=== PATIENT | male | born 1955 | race Caucasian/White ===

== ENCOUNTER → 2019-08-17 | Outpatient (CLI) | payer OTHER ==
--- NOTE | 2019-08-17 11:45 | REP ---
Four views left wrist and four views left hand: 08/17/2019. Indication: New left hand and wrist pain following fall. Comparison: None. Findings: There is no evidence of acute fracture, subluxation or dislocation. Osteoarthritic sequelae are noted most pronounced at the first carpal metacarpal joint. No erosive lesions of the visualized bones are noted. Impression: No acute fracture. Electronically Signed by Bhavesh Schultz DO 08/17/2019 11:37 A
== END ==
LOC: M RAD 10:53
PROVIDERS: ATTEND Physician Assistant Medical
DX: M25.532 Pain in left wrist (principal)

== ENCOUNTER 2019-12-07 18:41 | Emergency (ER) | payer OTHER ==
[2019-12-07] MEDS ORDERED: ALBU8.5H PO (18:56)
[2019-12-07] MEDS ORDERED: ALL10TAB29 PO (18:56)
[2019-12-07 19:12] LABS: BASO # 0.1 10^3/uL (0.0-0.2); BASO % 0.4 % (0.0-1.0); EOS # 1.1 10^3/uL (0.0-0.5); HEMOGLOBIN 17.7 g/dl (13.5-17.5); LYMPH # 1.2 10^3/uL (1.5-5.0); LYMPH % 5.6 % (24.0-44.0); MEAN CORPUSCULAR HEMOGLOBIN 28.6 pg (27.0-33.0); MEAN CORPUSCULAR HGB CONC 32.2 g/dl (32.0-36.5); MONO # 1.6 10^3/uL (0.0-0.8); MONO % 7.6 % (0.0-5.0); NEUTROPHILS # 17.3 10^3/uL (1.5-8.5); NEUTROPHILS % 80.8 % (36.0-66.0); PLATELET COUNT, AUTOMATED 370 10^3/uL (150-450); RED BLOOD COUNT 6.18 10^6/uL (4.30-6.10); WHITE BLOOD COUNT 21.4 10^3/uL (4.0-10.0)
[2019-12-07 19:39] LABS: ALBUMIN 4.6 GM/DL (3.2-5.2); ALT/SGPT 40 U/L (12-78); BILIRUBIN,DIRECT 0.2 MG/DL (0.0-0.2); BLOOD UREA NITROGEN 18 MG/DL (7-18); CALCIUM LEVEL 10.3 MG/DL (8.8-10.2); CARBON DIOXIDE LEVEL 22 MEQ/L (21-32); CHLORIDE LEVEL 102 MEQ/L (98-107); CK-MB VALUE MASS 1.3 NG/ML (<3.6); CPK CREATINE PHOSPHOKINASE 163 U/L (39-308); CREATININE FOR GFR 1.78 MG/DL (0.70-1.30); GLOMERULAR FILTRATION RATE 41.3 (>49); GLUCOSE, FASTING 159 MG/DL (70-100); LIPASE 145 U/L (73-393); POTASSIUM SERUM 4.5 MEQ/L (3.5-5.1); SODIUM LEVEL 138 MEQ/L (136-145); TOTAL PROTEIN 9.4 GM/DL (6.4-8.2); TROPONIN I < 0.02 NG/ML (< 0.10)
--- NOTE | 2019-12-07 19:58 | REP ---
Clinical: Chest pain . Comparison: 10/09/2014 . Findings: The mediastinum and cardiac silhouette are stable and within normal limits for portable technique. The lung perez demonstrate chronic interstitial changes and stable granuloma without acute consolidation, effusion, or pneumothorax. Skeletal structures are intact. Impression: No acute cardiopulmonary process appreciated. Electronically Signed by Poli Wood MD 12/07/2019 07:49 P
[2019-12-07] MEDS ORDERED: NS 1,000 ML IV ONE (20:30)
[2019-12-07] MEDS ORDERED: ONDANSETRON 4MG/2ML VIAL (J2405) IV ONE (20:30)
--- NOTE | 2019-12-07 21:26 | REPVR ---
PROCEDURE INFORMATION: Exam: CT Abdomen And Pelvis Without Contrast Exam date and time: 12/07/2019 8:29 PM Age: 64 years old Clinical indication: Vomiting; Additional info: Diarrhea/vomiting/pain TECHNIQUE: Imaging protocol: Computed tomography of the abdomen and pelvis without contrast. Radiation optimization: All CT scans at this facility use at least one of these dose optimization techniques: automated exposure control; mA and/or kV adjustment per patient size (includes targeted exams where dose is matched to clinical indication); or iterative reconstruction. COMPARISON: CT ABD PELVIS WITH CONTRAST 10/09/2014 12:56 PM FINDINGS: Lungs: There is subsegmental atelectasis base and diffuse bronchial wall thickening. There are no pleural effusions. There is a calcified lymph node in the left hilum and calcified granuloma in the left lower lobe unchanged in comparison to 10/09/2014 CT likely due to old granulomatous disease. Liver: There are no focal liver lesions present. Gallbladder and bile ducts: The gallbladder is normal. Pancreas: The pancreas is normal. Spleen: There is a probable granuloma in the spleen. Adrenals: The adrenal glands are normal. Kidneys and ureters: The kidneys are normal. Stomach and bowel: The colon is fluid filled. There is no small bowel obstruction. There is minimal pericolic Torie inflammation surrounding the sigmoid colon where diverticula are present. Appendix: No evidence of appendicitis. Intraperitoneal space: Unremarkable. No free air. No significant fluid collection. Vasculature: There is no evidence of an abdominal aortic aneurysm. The vasculature demonstrates diffuse mild atherosclerotic calcification. Lymph nodes: No lymphadenopathy. Bladder: The urinary bladder is decompressed and therefore not well assessed. Reproductive: Prostatic enlargement. Bones/joints: Skeletal degeneration. Bilateral L5 pars defects with grade 1 anterior spondylolisthesis. Soft tissues: Fat containing right inguinal hernia. IMPRESSION: 1. The colon is fluid filled consistent with patient's history of diarrhea. 2. There is minimal stranding surrounding the sigmoid colon which may be due to early diverticulitis. Electronically signed by: Donna James On 12/07/2019 21:26:28 PM
[2019-12-07 21:35] LABS: INFLUENZA A AMPLIFICATION NEGATIVE (NEGATIVE); INFLUENZA B AMPLIFICATION NEGATIVE (NEGATIVE)
[2019-12-07 22:04] VITALS: BP 134/70
[2019-12-07] MEDS ORDERED: CIPROFLOXACIN 500 MG TAB PO ONE (22:15)
[2019-12-07] MEDS ORDERED: metroNIDAZOLE (FLAGYL) 500 MG TAB PO ONE (22:15)
[2019-12-07] MEDS ORDERED: CIPR-249 PO (22:23)
[2019-12-07] MEDS ORDERED: FLAG500T PO (22:23)
[2019-12-07] MEDS ORDERED: HYDR-643 PO (22:24)
--- NOTE | 2019-12-08 05:50 | ECGEPIP ---
[facility] - ED Test Date: 2019-12-07 Pat Name: ANIBAL HURT Department: Room: - Gender: Male Injection Molding Technician: : 1955 Requested By: ENRIQUE RAMIREZ Order Number: [id number] Reading MD: Enrique Foley Measurements Intervals [place] Rate: 97 P: 47 IA: 171 QRS: -12 QRSD: 114 T: 46 QT: 341 QTc: 433 Interpretive Statements SINUS RHYTHM MODERATE INTRAVENTRICULAR CONDUCTION DELAY Delayed anterior R wave progression Inferior Q waves of uncertain significance Electronically Signed on 12-08-2019 5:50:05 EST by Enrique Foley
== END 2019-12-07 22:38 | disposition home or self-care (01) ==
LOC: M ED 18:41
DX: K57.32 Diverticulitis of large intestine without perforation or abscess without bleeding (principal); Z91.010 Allergy to peanuts; Z79.51 Long term (current) use of inhaled steroids; Z79.899 Other long term (current) drug therapy
CPT/HCPCS: 71045; 74176; 80048; 80076; 82550; 82553; 83690; 85025; 87502; 93005; 93041; 94760; 96374; 99285; J2405

== ENCOUNTER 2020-02-19 17:17 | Emergency (ER) | payer OTHER ==
[~2020-02-19] VITALS: Ht 182.9 cm; Wt 97.7 kg
[~2020-02-19 17:17] MED LIST: ALBU8.5H PO; ALL10TAB29 PO; CIPR-249 PO; FLAG500T PO; HYDR-643 PO
[2020-02-19] MEDS ORDERED: methylPREDNISolone INJ 125 MG/2 ML VIAL (J2930) IV ONE (17:45)
[2020-02-19] MEDS: IPRATROPIUM 0.5MG/ALBUTEROL 2.5MG INH SOL UD 3ML (DUONEB)(J7620) NEB PRN ×2 (17:48→17:59)
[2020-02-19 17:52] LABS: BASO # 0.1 10^3/uL (0.0-0.2); BASO % 0.5 % (0.0-1.0); EOS # 0.6 10^3/uL (0.0-0.5); EOS % 5.4 % (0.0-3.0); HEMATOCRIT 50.5 % (42.0-52.0); HEMOGLOBIN 16.3 g/dl (13.5-17.5); MEAN CORPUSCULAR HEMOGLOBIN 28.4 pg (27.0-33.0); MEAN CORPUSCULAR HGB CONC 32.3 g/dl (32.0-36.5); MEAN CORPUSCULAR VOLUME 88.1 fl (80.0-96.0); MONO # 0.8 10^3/uL (0.0-0.8); MONO % 6.9 % (0.0-5.0); NEUTROPHILS # 7.1 10^3/uL (1.5-8.5); NEUTROPHILS % 60.6 % (36.0-66.0); PLATELET COUNT, AUTOMATED 352 10^3/uL (150-450); RED BLOOD COUNT 5.73 10^6/uL (4.30-6.10); WHITE BLOOD COUNT 11.7 10^3/uL (4.0-10.0)
[2020-02-19] MEDS ORDERED: ISOVUE-370 76% 100ML VIAL As Ordered ONE (18:22)
[2020-02-19 18:27] LABS: ALBUMIN 4.2 GM/DL (3.2-5.2); ALT/SGPT 38 U/L (12-78); BILIRUBIN,DIRECT 0.1 MG/DL (0.0-0.2); BILIRUBIN,TOTAL 0.5 MG/DL (0.2-1.0); BLOOD UREA NITROGEN 14 MG/DL (7-18); CALCIUM LEVEL 9.6 MG/DL (8.8-10.2); CARBON DIOXIDE LEVEL 32 MEQ/L (21-32); CHLORIDE LEVEL 103 MEQ/L (98-107); CK-MB VALUE MASS 1.4 NG/ML (<3.6); CPK CREATINE PHOSPHOKINASE 83 U/L (39-308); GLOMERULAR FILTRATION RATE > 60.0 (>49); GLUCOSE, FASTING 149 MG/DL (70-100); MB/CK RELATIVE INDEX 1.69 (< OR =4); POTASSIUM SERUM 4.5 MEQ/L (3.5-5.1); SODIUM LEVEL 140 MEQ/L (136-145); TOTAL PROTEIN 8.4 GM/DL (6.4-8.2); TROPONIN I < 0.02 NG/ML (< 0.10)
[2020-02-19] MEDS ORDERED: PRED20TA PO (19:06)
[2020-02-19] MEDS ORDERED: PROAAER10 INH (19:14)
[2020-02-19 19:30] VITALS: BP 138/68
--- NOTE | 2020-02-19 22:25 | ECGEPIP ---
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
--- NOTE | 2020-02-20 01:52 | REP ---
REASON FOR EXAM: Dyspnea. COMPARISON: 12/07/2019 and frontal view of 10/09/2014. FINDINGS: The technique utilized in obtaining the radiograph has magnified the cardiac silhouette and accentuated the interstitial markings. The superior mediastinal structures are midline. The cardiac silhouette is unremarkable in size, shape, and position. The diaphragmatic surfaces of the lungs are regular, and the costophrenic angles are clear. The pulmonary perez are clear. The imaged osseous structures are intact. IMPRESSION: There is no acute cardiopulmonary disease. Electronically Signed by Frank Akhtar DO 02/20/2020 08:00 A
== END 2020-02-19 19:58 | disposition left against medical advice (07) ==
LOC: M ED 17:17
DX: J40 Bronchitis, not specified as acute or chronic (principal); R00.0 Tachycardia, unspecified; Z87.891 Personal history of nicotine dependence; Z91.018 Allergy to other foods; Z79.899 Other long term (current) drug therapy
CPT/HCPCS: 71045; 80048; 80076; 82550; 82553; 85025; 93005; 93041; 94640; 94760; 96374; 99284; J2930

== ENCOUNTER 2020-07-22 14:11 | Emergency (ER) | payer OTHER ==
[~2020-07-22] VITALS: Ht 182.9 cm; Wt 100.3 kg
[~2020-07-22 14:11] MED LIST changes: -ALL10TAB29 PO; +CETI-24 PO; +PRED20TA PO; +PROAAER10 INH
[2020-07-22] MEDS ORDERED: CYCL-707 (14:22)
[2020-07-22] MEDS ORDERED: AMLO1TAB24 (14:22)
[2020-07-22 15:12] LABS: BASO % 0.3 % (0.0-1.0); EOS # 0.4 10^3/uL (0.0-0.5); EOS % 3.2 % (0.0-3.0); HEMATOCRIT 44.6 % (42.0-52.0); HEMOGLOBIN 14.6 g/dl (13.5-17.5); LYMPH # 3.3 10^3/uL (1.5-5.0); LYMPH % 26.5 % (24.0-44.0); MEAN CORPUSCULAR HEMOGLOBIN 28.5 pg (27.0-33.0); MEAN CORPUSCULAR HGB CONC 32.7 g/dl (32.0-36.5); MEAN CORPUSCULAR VOLUME 87.1 fl (80.0-96.0); MONO # 0.9 10^3/uL (0.0-0.8); MONO % 7.2 % (0.0-5.0); NEUTROPHILS # 7.6 10^3/uL (1.5-8.5); PLATELET COUNT, AUTOMATED 308 10^3/uL (150-450); RED BLOOD COUNT 5.12 10^6/uL (4.30-6.10); WHITE BLOOD COUNT 12.3 10^3/uL (4.0-10.0)
[2020-07-22 15:42] LABS: ALBUMIN 3.5 GM/DL (3.2-5.2); ALT/SGPT 32 U/L (12-78); BILIRUBIN,DIRECT < 0.1 MG/DL (0.0-0.2); BILIRUBIN,TOTAL 0.3 MG/DL (0.2-1.0); BLOOD UREA NITROGEN 15 MG/DL (7-18); CALCIUM LEVEL 9.1 MG/DL (8.8-10.2); CARBON DIOXIDE LEVEL 23 MEQ/L (21-32); CHLORIDE LEVEL 109 MEQ/L (98-107); CREATININE FOR GFR 1.05 MG/DL (0.70-1.30); GLOMERULAR FILTRATION RATE > 60.0 (>49); GLUCOSE, FASTING 93 MG/DL (70-100); LIPASE 100 U/L (73-393); POTASSIUM SERUM 3.7 MEQ/L (3.5-5.1); SODIUM LEVEL 139 MEQ/L (136-145); TOTAL PROTEIN 7.3 GM/DL (6.4-8.2)
--- NOTE | 2020-07-22 18:05 | REPVR ---
PROCEDURE INFORMATION: Exam: US Scrotum Exam date and time: 07/22/2020 5:56 PM Age: 65 years old Clinical indication: Groin pain and scrotum pain; Additional info: Right inguinal pain TECHNIQUE: Imaging protocol: Real-time ultrasound of the scrotum and contents with color Doppler and image documentation. COMPARISON: No relevant prior studies available. FINDINGS: Right testicle: Right testis measures 4.1 x 2.6 x 3.3 cm. Normal texture and flow. Left testicle: Left testis measures 4.1 x 2.4 x 3.4 cm. Normal texture inflow. Epididymides: Two cysts in the left epididymal head measures 9.7 x 8.7 x 6.7 mm in 9.7 x 9.1 x 6.3 mm. Scrotum: Normal. IMPRESSION: Two cysts in the left epididymal head. Otherwise unremarkable. Electronically signed by: Isaak Balderrama On 07/22/2020 18:05:25 PM
[2020-07-22 18:53] VITALS: BP 179/95
--- NOTE | 2020-07-24 18:29 | ED PDOC ---
Post-Departure Follow-Up dr hi faxed formal report of scrotal us for fu Iman Duarte MD Jul 24, 2020 18:29
== END 2020-07-22 18:54 | disposition home or self-care (01) ==
LOC: M ED 14:11
DX: N43.3 Hydrocele, unspecified (principal); N50.3 Cyst of epididymis; I10 Essential (primary) hypertension; Z91.010 Allergy to peanuts; Z79.899 Other long term (current) drug therapy

== ENCOUNTER → 2020-07-24 | Outpatient (REF) | payer OTHER ==
[~2020-07-24] MED LIST changes: +AMLO1TAB24; +CYCL-707; +ZOFR4TAB16 PO
== END ==
LOC: M SMT 16:57
PROVIDERS: ATTEND Nurse Practitioner Family
DX: N50.819 Testicular pain, unspecified (principal)

== ENCOUNTER → 2020-08-12 | Outpatient (CLI) | payer OTHER | LOC: M LAB 10:17 | PROVIDERS: ATTEND Nurse Practitioner Family | DX: Z12.5 Encounter for screening for malignant neoplasm of prostate (principal) ==

== ENCOUNTER → 2020-08-16 | Outpatient (CLI) | payer OTHER ==
--- NOTE | 2020-08-16 11:24 | REP ---
INDICATION: TESTICULAR PAIN COMPARISON: None TECHNIQUE: Axial noncontrast images from the lung bases to the pubic symphysis with coronal and sagittal reformations. This CT examination was performed using the following dose reduction techniques: Automated exposure control, adjustment of mA and/or kv according to the patient's size, and use of iterative reconstruction technique. FINDINGS: Mild fatty infiltration to the liver is suggested. Spleen, pancreas, gallbladder, bilateral adrenal glands and kidneys are normal. The enteric system is without obstruction or acute inflammatory process. Diverticulosis noted without acute diverticulitis. Normal terminal ileum and appendix are identified in the right lower quadrant. Pelvis demonstrates normal bladder and mildly prominent prostate gland. No ascites. No free air. No adenopathy. Abdominal aorta without aneurysm. Musculoskeletal structures demonstrate age-related degenerative changes and chronic L5 spondylolysis without spondylolisthesis. IMPRESSION: Mild hepatosteatosis. Diverticulosis. Chronic L5 spondylolysis without spondylolisthesis. No further acute abdominopelvic pathology appreciated. <Electronically signed by Poli Wood > 08/16/20 [id number]
== END ==
LOC: M RAD 09:47
PROVIDERS: ATTEND Nurse Practitioner Family
DX: K76.0 Fatty (change of) liver, not elsewhere classified (principal); K57.30 Diverticulosis of large intestine without perforation or abscess without bleeding; M43.06 Spondylolysis, lumbar region; N50.819 Testicular pain, unspecified

== ENCOUNTER 2020-08-30 18:31 | Emergency (ER) | payer OTHER ==
[~2020-08-30 18:31] MED LIST changes: -ZOFR4TAB16 PO
[2020-08-30 18:32] VITALS: BP 138/74
[2020-08-30] MEDS ORDERED: NS 1,000 ML IV ONE (19:30)
[2020-08-30] MEDS ORDERED: GI COCKTAIL 50ML BTL(HYOSCYAMINE/MAALOX/LIDOCAINE VISCOUS)(1:3:1) PO ONE (19:30)
[2020-08-30] MEDS ORDERED: PANTOPRAZOLE 40MG VIAL (C9113 PER 1) IV ONE (19:30)
[2020-08-30] MEDS ORDERED: ONDANSETRON 4MG/2ML VIAL IV ONE (19:30)
[2020-08-30 19:37] LABS: HEMATOCRIT 49.8 % (42.0-52.0); HEMOGLOBIN 15.7 g/dl (13.5-17.5); MEAN CORPUSCULAR HEMOGLOBIN 27.6 pg (27.0-33.0); MEAN CORPUSCULAR HGB CONC 31.5 g/dl (32.0-36.5); MEAN CORPUSCULAR VOLUME 87.7 fl (80.0-96.0); PLATELET COUNT, AUTOMATED 367 10^3/uL (150-450); RED BLOOD COUNT 5.68 10^6/uL (4.30-6.10); WHITE BLOOD COUNT 26.7 10^3/uL (4.0-10.0)
[2020-08-30 19:46] LABS: ALBUMIN 4.3 GM/DL (3.2-5.2); ALT/SGPT 35 U/L (12-78); AMYLASE 35 U/L (25-115); BILIRUBIN,DIRECT 0.2 MG/DL (0.0-0.2); BILIRUBIN,TOTAL 0.7 MG/DL (0.2-1.0); BLOOD UREA NITROGEN 29 MG/DL (7-18); CALCIUM LEVEL 9.7 MG/DL (8.8-10.2); CARBON DIOXIDE LEVEL 16 MEQ/L (21-32); CHLORIDE LEVEL 106 MEQ/L (98-107); CK-MB VALUE MASS 1.2 NG/ML (<3.6); CPK CREATINE PHOSPHOKINASE 72 U/L (39-308); CREATININE FOR GFR 2.17 MG/DL (0.70-1.30); GLOMERULAR FILTRATION RATE 32.8 (>49); GLUCOSE, FASTING 182 MG/DL (70-100); LIPASE 109 U/L (73-393); MB/CK RELATIVE INDEX 1.67 (< OR =4); POTASSIUM SERUM 4.4 MEQ/L (3.5-5.1); SODIUM LEVEL 136 MEQ/L (136-145); TROPONIN I < 0.02 NG/ML (< 0.10)
[2020-08-30 20:05] LABS: ATYPICAL LYMPH 1 % (0-5); LYMPHOCYTES 1 % (16-44); MONOCYTES 8 % (0-5); NEUTROPHILS 69 % (28-66)
[2020-08-30 20:10] LABS: PLATELET ESTIMATE NORMAL (NORMAL)
[2020-08-30] MEDS ORDERED: ZOFR4TAB16 PO (20:27)
--- NOTE | 2020-08-30 20:27 | REP ---
INDICATION: Abdominal Pain. COMPARISON: CT 10/09/2014 TECHNIQUE: Upright PA chest, two-view abdomen FINDINGS: PA chest: Lungs are well inflated. There is no pleural effusion lateral pleural thickening apical scarring or pneumothorax. Calcified granuloma in the left CP angle is seen on previous abdominal CT lung windows. Heart is not enlarged and there is no vascular redistribution or pulmonary edema. The aorta is normal airway is intact degenerative changes in the spine and shoulders. No free air under the diaphragm. Flat upright abdomen: Dilated small bowel loops throughout the upper and lower abdomen with air-fluid levels on the upright view I do not see free air under the diaphragm there is a paucity of gas in the the colon. No abnormal calcifications. Degenerative changes lower thoracic and lumbar endplates with marginal osteophytes and syndesmophytes. Few pelvic phleboliths are seen. IMPRESSION: 1. Small bowel obstructive pattern, likely a distal small bowel location with dilated loops throughout the upper and lower abdomen and air-fluid levels on the upright view. 2. Paucity of the gas in the colon. An air-fluid level in the stomach also noted. 3. No acute cardiopulmonary change. <Electronically signed by Kirk Diaz > 08/30/202022
--- NOTE | 2020-08-31 16:57 | ECGEPIP ---
[facility] - ED Test Date: 2020-08-30 Pat Name: ANIBAL HURT Department: Room: - Gender: Male Automotive Assembler: erasmo : 1955 Requested By: Odalys Michel Order Number: [id number] Reading MD: Odalys Michel Measurements Intervals [place] Rate: 108 P: 46 TN: 180 QRS: 1 QRSD: 102 T: 13 QT: 320 QTc: 431 Interpretive Statements SINUS TACHYCARDIA ABNORMAL RHYTHM ECG POSSIBLE INFERIOR INFARCT [id number] abnormalities Electronically Signed on 08-31-2020 16:57:01 EST by Odalys Michel
--- NOTE | 2020-09-02 11:57 | ED PDOC ---
Post-Departure Follow-Up aureliano neri faxed formal report of abdl series for fu Iman Duarte MD Sep 02, 2020 11:57
== END 2020-08-30 20:43 | disposition left against medical advice (07) ==
LOC: M ED 18:31
DX: Z53.20 Procedure and treatment not carried out because of patient's decision for unspecified reasons (principal); K56.699 Other intestinal obstruction unspecified as to partial versus complete obstruction; N17.9 Acute kidney failure, unspecified; F17.200 Nicotine dependence, unspecified, uncomplicated; I11.9 Hypertensive heart disease without heart failure; J45.909 Unspecified asthma, uncomplicated; Z79.51 Long term (current) use of inhaled steroids; Z88.6 Allergy status to analgesic agent; Z91.010 Allergy to peanuts; Z91.018 Allergy to other foods
CPT/HCPCS: 74021; 80048; 80076; 82150; 82550; 82553; 83690; 85025; 93005; 93041; 96361; 96374; 96375; 99284; C9113; J2405

== ENCOUNTER → 2022-01-20 | Outpatient (CLI) | payer MEDICARE, OTHER ==
[~2022-01-20] MED LIST changes: +ZOFR4TAB16 PO
== END ==
LOC: M PLAIMG 14:50
PROVIDERS: ATTEND Physician Assistant
DX: R06.2 Wheezing (principal)

== ENCOUNTER 2022-05-22 06:58 | Emergency (ER) | payer MEDICARE ==
[~2022-05-22] VITALS: Ht 180.3 cm; Wt 98.3 kg
[2022-05-22 06:59] VITALS: BP 126/74
[2022-05-22] MEDS ORDERED: SING4CHW9 PO (07:08)
== END 2022-05-22 07:18 | disposition left against medical advice (07) ==
LOC: M ED 06:58
DX: Z53.21 Procedure and treatment not carried out due to patient leaving prior to being seen by health care provider (principal)

== ENCOUNTER → 2024-12-09 | Outpatient (CLI) | payer MEDICARE ==
[~2024-12-09] MED LIST changes: +MONT4TAB2 PO
== END ==
LOC: M RAD 11:28
PROVIDERS: ATTEND Physician Assistant Medical
DX: R06.02 Shortness of breath (principal); R05.9 Cough, unspecified

== ENCOUNTER 2024-12-10 23:15 | Emergency (ER) | payer MEDICARE ==
[~2024-12-10] VITALS: Ht 180.3 cm; Wt 92.7 kg
[2024-12-11] MEDS: IPRATROPIUM 0.5MG/ALBUTEROL 2.5MG INH SOL UD 3ML (DUONEB) NEB ONE (00:25)
[2024-12-11 00:35] LABS: VENOUS BASE EXCESS -2.6 (-2.0-2.0); VENOUS HCO3 23.3 MMOL/L (23.0-27.0); VENOUS O2 SATURATION 80.9 % (60.0-80.0); VENOUS PARTIAL PRESSURE CO2 43.9 mmHg (38.0-50.0); VENOUS PARTIAL PRESSURE O2 47.7 mmHg (30.0-50.0); VENOUS PH 7.342 UNITS (7.330-7.430); VENOUS STANDARD HCO3 21.9 MMOL/L; VENOUS TOTAL CO2 24.6 MMOL/L (24.0-28.0)
[2024-12-11 00:41] LABS: BASO # 0.1 10^3/uL (0.0-0.2); BASO % 0.3 % (0.0-1.0); EOS # 0.2 10^3/uL (0.0-0.5); EOS % 0.9 % (0.0-3.0); HEMATOCRIT 42.7 % (42.0-52.0); HEMOGLOBIN 14.2 g/dl (13.5-17.5); LYMPH # 1.7 10^3/uL (1.5-5.0); MEAN CORPUSCULAR HGB CONC 33.3 g/dl (32.0-36.5); MEAN CORPUSCULAR VOLUME 87.3 fl (80.0-96.0); MONO # 1.1 10^3/uL (0.0-0.8); MONO % 5.8 % (2.0-8.0); NEUTROPHILS # 15.3 10^3/uL (1.5-8.5); NEUTROPHILS % 83.4 % (36.0-66.0); PLATELET COUNT, AUTOMATED 300 10^3/uL (150-450); RED BLOOD COUNT 4.89 10^6/uL (4.30-6.10); WHITE BLOOD COUNT 18.4 10^3/uL (4.0-10.0)
[2024-12-11 01:18] LABS: ALBUMIN 3.8 G/DL (3.2-5.2); ALKALINE PHOSPHATASE 88 U/L (40-129); ALT/SGPT 25 U/L (7.0-40); AST/SGOT 53 U/L (<34); BILIRUBIN,DIRECT 0.1 MG/DL (<0.4); BILIRUBIN,TOTAL 0.7 MG/DL (0.3-1.2); BLOOD UREA NITROGEN 16 MG/DL (9-23); CALCIUM LEVEL 8.6 MG/DL (8.3-10.6); CARBON DIOXIDE LEVEL 23 MMOL/L (20-31); CHLORIDE LEVEL 106 MMOL/L (98-107); CREATININE FOR GFR 0.71 MG/DL (0.70-1.30); GLOMERULAR FILTRATION RATE > 60.0 (>49); GLUCOSE, FASTING 145 MG/DL (74-106); POTASSIUM SERUM 5.9 MMOL/L (3.5-5.1); SODIUM LEVEL 140 MMOL/L (136-145); TOTAL PROTEIN 7.9 G/DL (5.7-8.2)
[2024-12-11 06:01] VITALS: TEMP 98
[2024-12-11] MEDS: dexAMETHasone 20MG/5ML VIAL IV ONE (08:10)
[2024-12-11 10:15] VITALS: O2SAT 100
[2024-12-11 10:18] VITALS: BP 152/78
== END 2024-12-11 11:15 | disposition home or self-care (01) ==
LOC: EDBD 23:15 → M ED 23:15
DX: J44.1 Chronic obstructive pulmonary disease with (acute) exacerbation (principal); I10 Essential (primary) hypertension; J45.909 Unspecified asthma, uncomplicated; K57.92 Diverticulitis of intestine, part unspecified, without perforation or abscess without bleeding; M54.9 Dorsalgia, unspecified; F17.200 Nicotine dependence, unspecified, uncomplicated; Z79.899 Other long term (current) drug therapy; Z88.6 Allergy status to analgesic agent; Z91.018 Allergy to other foods

== ENCOUNTER → 2024-12-14 | Outpatient (CLI) | payer MEDICARE | LOC: M RAD 11:32 | PROVIDERS: ATTEND Nurse Practitioner Family | DX: J44.9 Chronic obstructive pulmonary disease, unspecified (principal) ==

== ENCOUNTER → 2024-12-27 | Outpatient (CLI) | payer MEDICARE | LOC: M SLEEP HO 11:06 | PROVIDERS: ATTEND Nurse Practitioner Family | DX: J44.9 Chronic obstructive pulmonary disease, unspecified (principal) ==

== ENCOUNTER 2025-01-13 02:59 | Emergency (ER) | payer MEDICARE ==
[~2025-01-13] VITALS: Ht 177.8 cm; Wt 91.6 kg
[2025-01-13 03:49] LABS: BASO # 0.1 10^3/uL (0.0-0.2); BASO % 0.8 % (0.0-1.0); EOS % 9.7 % (0.0-3.0); HEMATOCRIT 40.1 % (42.0-52.0); HEMOGLOBIN 13.2 g/dl (13.5-17.5); LYMPH % 19.6 % (24.0-44.0); MEAN CORPUSCULAR HEMOGLOBIN 28.9 pg (27.0-33.0); MEAN CORPUSCULAR HGB CONC 32.9 g/dl (32.0-36.5); MEAN CORPUSCULAR VOLUME 87.7 fl (80.0-96.0); MONO % 9.8 % (2.0-8.0); NEUTROPHILS # 6.1 10^3/uL (1.5-8.5); NEUTROPHILS % 59.7 % (36.0-66.0); PLATELET COUNT, AUTOMATED 280 10^3/uL (150-450); RED BLOOD COUNT 4.57 10^6/uL (4.30-6.10); WHITE BLOOD COUNT 10.2 10^3/uL (4.0-10.0)
[2025-01-13 04:16] LABS: ALBUMIN 3.8 G/DL (3.2-5.2); ALKALINE PHOSPHATASE 85 U/L (40-129); ALT/SGPT 20 U/L (7.0-40); AST/SGOT 13 U/L (<34); BILIRUBIN,DIRECT 0.2 MG/DL (<0.4); BILIRUBIN,TOTAL 0.6 MG/DL (0.3-1.2); BLOOD UREA NITROGEN 10 MG/DL (9-23); CALCIUM LEVEL 9.9 MG/DL (8.3-10.6); CARBON DIOXIDE LEVEL 24 MMOL/L (20-31); CHLORIDE LEVEL 107 MMOL/L (98-107); CREATININE FOR GFR 0.74 MG/DL (0.70-1.30); GLOMERULAR FILTRATION RATE > 60.0 (>49); GLUCOSE, FASTING 100 MG/DL (74-106); POTASSIUM SERUM 3.9 MMOL/L (3.5-5.1); SODIUM LEVEL 143 MMOL/L (136-145); TOTAL PROTEIN 7.2 G/DL (5.7-8.2)
[2025-01-13 05:38] VITALS: BP 155/74; TEMP 97.1; O2SAT 95
== END 2025-01-13 05:45 | disposition left against medical advice (07) ==
LOC: M ED 02:59
DX: Z53.21 Procedure and treatment not carried out due to patient leaving prior to being seen by health care provider (principal)